=== PATIENT | male | born 1930 | race Caucasian/White ===

== ENCOUNTER 2017-04-01 15:58 | Inpatient (IN) | payer MEDICARE ==
--- NOTE | ~2017-04-01 | HP ---
History And Physical [place] [address] [facility] [place]. [address] NAME: GISELLE DOAN : [birth year] STATUS : ADM IN PAT#: [id number] AGE: 87 ADM/REG DATE : 04/01/17 MR#: [id number] REPORT SERV DATE: 04/02/17 DICTATED BY: JARRED SILVA DATE: 04/01/17 REPORT STATUS : Draft TRANSCRIBED BY: MODL DATE: 04/01/17 DATE OF ADMISSION: 04/01/2017 REASON FOR ADMISSION: Acute kidney injury per Dr. Moser. HISTORY OF PRESENT ILLNESS: This is an 87-year-old male, who suffers from obesity, likely dementia. He knows what year it is at baseline, but he is slow to speech, known history as well, recently diagnosed with sick sinus syndrome at [facility] requiring a pacemaker in December 2016. The patient also has a history of AFib, rate controlled on carvedilol, suspected history of heart failure. As a result, we do not have an EF in front of me. The patient has known history of CKD 3, baseline of 1.6 to 1.7. Recent history of acute anemia, prompted having endoscopy in early January 2017 at [place] which showed EGD, antral polyps. Colonoscopy showed one sessile polyp in the ascending colon, which was removed. No signs of active bleeding found anywhere in the upper or lower scopes at that time. Known hemoglobin 7.9. H and H were stable. He was recommended if it were to recur, have an outpatient PillCam study, went to a facility in January 2017, then followed up with Dr. Moser who noted additional past history of having RICHARD on CKD, held his Lasix. The patient came in two weeks later with increased swelling, left greater than right lower extremity, mild shortness of breath, but here at 100% on room air. The patient as a result was recommended for direct admission per Dr. Moser. Exam done in here, vitals are 118/56, 100% on room air; 15 respirations; 71 heart rate, 98.1 temperature. The patient is not the best historian. His daughter is there who made him a complete DNR/DNI. I did not endorse any new fevers, chills, nausea, vomiting, has chronic diarrhea, no chest pain, no chest pressure. Positive shortness of breath. Cannot elicit PND or orthopnea. No abdominal pain. No melena. No hematochezia. PAST MEDICAL AND PAST SURGICAL HISTORY: See above, including apparent hypertension, additional history of colon cancer status post surgical resection. He did apparently have two lymph nodes infiltrated with cancer. Apparently, the patient did not get any chemo or radiation thereafter. History of COPD, about [id number] history of smoking, quit in his 40s. MR, right bundle-branch block, diastolic heart failure, presumed EF being normal. Additional past medical history of hypothyroidism, on Synthroid; osteoarthritis; tramadol for pain. FAMILY HISTORY: Hypertension at least one parent. SOCIAL HISTORY: Does not drink, do drugs, or smoke cigarettes, used to though in his 20s to his 40s, possibly [id number]. ALLERGIES: NO KNOWN DRUG ALLERGIES. REVIEW OF SYSTEMS: Done, see HPI. Otherwise, negative. PHYSICAL EXAMINATION: VITAL SIGNS: Blood pressure 118/56, 100% on room air, 15 respirations, 71 heart rate, 98.1 History And Physical [address] [address] NAME: GISELLE DOAN : [birth year] STATUS : ADM IN [facility]#: [id number] AGE: 87 ADM/REG DATE : 04/01/17 MR#: [id number] REPORT SERV DATE: 04/02/17 DICTATED BY: JARRED SILVA DATE: 04/01/17 REPORT STATUS : Draft TRANSCRIBED BY: PABLO DATE: 04/01/17 temperature. GENERAL: In no acute distress. HEENT: PERRLA. No scleral icterus. CARDIOVASCULAR: No carotid bruit. No murmur auscultated. Otherwise, regular rate and rhythm. Muffled heart sounds. RESPIRATORY: Decreased breath sounds bibasilar. No obvious wheezes. No crackles. ABDOMEN: Nontender, nondistended. Positive bowel sounds. EXTREMITIES: He does have about 2+ pitting edema in left lower extremity compared to 1+ in the right lower extremity. NEURO: He is A and O x4/4. He is a bit slow to speech, it may be his baseline per the daughter. PSYCH: Unable to assess given neuro status. LABORATORY DATA: All pending, apparently Dr. Moser' office, it was 2.6 creatinine to 2.3 and he has a baseline 1.6 to 1.7 and I see here, he has blood drawn yesterday on the 03/31/2017. White count was 4.1, hemoglobin was 8.0, platelets of 162,000. The patient has a sugar of 111 from yesterday. Creatinine 2.3, may have been 2.2 two weeks ago. His hemoglobin may have been 8.7 two weeks ago. CO2 of 22, mild acidosis. ASSESSMENT: 1. Acute kidney injury on chronic kidney disease, unclear urine output status. 2. Left lower greater than right lower extremity swelling, yet is on Eliquis. Please also reference home medications per the pharmacy [facility]. 3. History of diastolic heart failure. 4. Hypothyroidism. 5. Dementia with recent discharge from [facility] [place] in January 2017 "generalized weakness, possible failure to thrive." The patient has had decreased p.o. intake per the daughter resulting in acute kidney injury if there is no other reversible reason. 6. Sick sinus syndrome history with pacer. PLAN: We will go ahead and admit this patient. Elucidate his RICHARD with CT of the abdomen and pelvis to rule out nephrolithiasis. Get a FENa. Place him initially on LR 120 for 2 L, then LR at 90. We will add sodium bicarbonate as well given his mild acidosis from yesterday. We will repeat CBC and a procalcitonin level suggestive of any sepsis, we will panculture the patient. Empirically place him on Levaquin given his shortness of breath. However, the patient is 100% on room air. As a result, I will not diurese this patient until we have more definitive evidence. BMP in light of his elevated creatinine. He does not appear to have any orthopnea or PND at this time. We will get a bilateral lower extremity ultrasound for potential clot, however, would be unusual and Eliquis may require if he does have one to have a different anticoagulant. Get a CT of his head given his slow to speech nature. He is also anemic today with recent known history of guaiac-positive in the past with relatively negative endoscopy and colonoscopy at [place]. As a result, I will repeat stool guaiac and Protonix 40 IV b.i.d. Type and screen 2 units, transfuse if less than 7 with Lasix in between. Slow transfusions at 4 hours, may just have symptomatic anemia. See rest of my orders. More details to follow pending his clinical course and laboratory results. History And Physical [address] [place]. [place]. [address] NAME: GISELLE DOAN : [birth year] STATUS : ADM IN PAT#: [id number] AGE: 87 ADM/REG DATE : 04/01/17 MR#: [id number] REPORT SERV DATE: 04/02/17 DICTATED BY: JARRED SILVA DATE: 04/01/17 REPORT STATUS : Draft TRANSCRIBED BY: PABLO DATE: 04/01/17 All questions were answered. It took well over 60 minutes to do. Reference [employer]Seek and Results Scorecard. WST/MODL Jarred Silva DO / [id number] CC: DO Annelise Hu D.O. F.A.C.P.
--- NOTE | ~2017-04-01 | CN ---
Consultation Report [facility] [address] [place]. [address] NAME: GISELLE MORE : [birth year] STATUS : ADM IN PAT#: [id number] AGE: 87 ADM/REG DATE : 04/01/17 MR#: [id number] REPORT SERV DATE: 04/02/17 DICTATED BY: MORGAN WARD DATE: 04/02/17 REPORT STATUS : Draft TRANSCRIBED BY: MODL DATE: 04/02/17 NEPHROLOGY CONSULTATION DATE OF CONSULTATION: HISTORY OF PRESENT ILLNESS: Mr. More is an 87-year-old, white male, patient of Dr. Orion Simmons so I am asked to consult for acute on chronic renal failure. Dr. Facundo Moser follows him as an outpatient, baseline creatinine 1.6 to 1.7 baseline, 1.8 on 01/28/2017 when admitted to [facility] for workup of anemia. By 03/19/2017, his creatinine gone up to 2.[address] Facundo Moser office and by 03/31/2017, it was 2.3 and at that point, he was edematous after having stopped the Lasix because thinking he maybe a bit prerenal earlier. By the 04/01/2017, it had gone up to 2.35 and was transferred to the hospital for further evaluation. PAST MEDICAL HISTORY: Significant for dementia; sick sinus syndrome with a pacemaker placed at [place] in December this year; long history of atrial fib rate controlled with apixaban on board; had colon resection in 2012 for colon cancer with positive lymph nodes but no chemo or radiation therapy thought indicated; chronic anemia persistent on 01/28/2017, had an EGD and colonoscopy revealing colon polyps and antral polyps; has longstanding history of COPD; hypertension; hypothyroidism; and osteoarthritis. SOCIAL HISTORY: No tobacco currently but does have extensive history in the past. No alcohol. No drugs. FAMILY HISTORY: Positive for hypertension. ALLERGIES: NO KNOWN DRUG ALLERGIES. REVIEW OF SYSTEMS: He is demented, no history. He has history of chronic acute kidney failure for which Lasix was stopped, and he developed some edema. His Lasix is still off, and his son-in-law tells me he had problems with catheter with urine retention at [place] in December and a catheter was placed there with much difficulty. They had to use a Coude catheter and they thought, they might have to call in somebody special to put the catheter in. It apparently was quite painful and the family would like to avoid it if possible although I explained to him if CT scan shows distended bladder, we would check a postvoid residual and put a catheter in if needed. PHYSICAL EXAMINATION: VITAL SIGNS: Blood pressure 113/54, heart rate of 61, respirations 16, temperature 98.8. GENERAL: Awake, alert, oriented x2, 2017 and name. HEENT: Examination unremarkable. NECK: Supple. Consultation Report [facility] [address] [place]. [address] NAME: GISELLE MORE : [birth year] STATUS : ADM IN PAT#: [id number] AGE: 87 ADM/REG DATE : 04/01/17 MR#: [id number] REPORT SERV DATE: 04/02/17 DICTATED BY: MORGAN WARD DATE: 04/02/17 REPORT STATUS : Draft TRANSCRIBED BY: PABLO DATE: 04/02/17 CHEST: Clear with upper airway sounds. CARDIOVASCULAR: Without rub. ABDOMEN: Abdomen has distended bladder palpable suprapubically. Bowel sounds are present. No other masses palpated. EXTREMITIES: 2+ edema in both lower extremities. NEUROLOGICAL: Nonfocal neurological exam. Did not ambulate the patient. LABORATORY DATA: Lab shows sodium 147, potassium 3.4, chloride 115, BUN of 53, creatinine 2.3 with blood sugar 85. Calcium 8.2, magnesium 1.6. Phosphorus 3.9, white count 3.1, hemoglobin 7.2, hematocrit 22, platelet count 146,000. ASSESSMENT: 1. Acute kidney injury on chronic kidney disease. Baseline creatinine 1.8 now 2.3. We need to rule out obstruction especially with palpable bladder. CT scan pending. 2. See past medical history. PLAN: CT of the abdomen has been done. We will see if he a Jordan catheter is indicated, and we will discuss with Dr. Simmons in a.m. I have talked to the daughter and son-in-law, and I have explained to them the need for the catheter if his postvoid residual is still elevated. FRANCISCA/PABLO Morgan Ward M.D. / [id number] CC: DO Annelise Hu D.O. F.A.C.P.
--- NOTE | ~2017-04-01 | PUL ---
[address] [address] NAME: GISELLE DOAN : [birth year] STATUS : ADM IN PAT#: [id number] AGE: 87 ADM/REG DATE : 04/01/17 MR#: [id number] REPORT SERV DATE: 04/06/17 DICTATED BY: MURIEL GONZALEZ DATE: 04/05/17 REPORT STATUS : Draft TRANSCRIBED BY: MODL DATE: 04/05/17 PULMONARY FUNCTION TEST Overnight oximetry performed on room air demonstrated no significant desaturation. Normal oximetry report. KB/MODL Muriel Gonzalez M.D. / [id number] CC: DO Annelise Hu D.O. F.A.C.P.
--- NOTE | ~2017-04-01 | CN ---
Consultation Report [facility] [address] [facility] [place]. [address] NAME: GISELLE MORE : [birth year] STATUS : ADM IN [facility]#: [id number] AGE: 87 ADM/REG DATE : 04/01/17 MR#: [id number] REPORT SERV DATE: 04/04/17 DICTATED BY: GUICHO SORIANO DATE: 04/04/17 REPORT STATUS : Draft TRANSCRIBED BY: MODL DATE: 04/04/17 CONSULTATION DATE OF CONSULTATION: 04/04/2017 REASON FOR CONSULTATION: Urinary retention with bilateral hydronephrosis and acute renal insufficiency. HISTORY OF PRESENT ILLNESS: Mr. More is an 87-year-old male with multiple comorbidities, who was found to be anemic, was admitted for anemia workup. During his workup, he was found to have an elevated creatinine up to 2.3. CT scan without contrast was done which demonstrated urinary retention and bilateral hydronephrosis. He is on anticoagulation for cardiac conditions. I have asked to consult, given urinary retention and acute kidney injury. PAST MEDICAL HISTORY: Dementia, sick sinus syndrome with pacemaker, atrial fibrillation on anticoagulation, history of colon resection, chronic anemia, COPD, hypertension, hypothyroidism, and osteoarthritis. PAST SURGICAL HISTORY: Colon removal, upper endoscopy, and EGD. SOCIAL HISTORY: He does not smoke, drink, or use illegal drugs. FAMILY HISTORY: Positive hypertension. ALLERGIES: NO KNOWN DRUG ALLERGIES. REVIEW OF SYSTEMS: Review of systems was performed. Pertinent positives are listed in the HPI. PHYSICAL EXAMINATION: VITAL SIGNS: Temperature is. 98.3, pulse is in the 60s, blood pressure is 111/56, and saturating 96% on room air. GENERAL: He is in no acute distress. He appears stated age. HEENT: Head is normocephalic and atraumatic. LUNGS: Breathing is nonlabored. He is not in respiratory distress. Pulse is regular in rate and rhythm. ABDOMEN: Soft, nontender, and nondistended. There is no cyanosis or edema. He has a buried penis. There is some scrotal edema. LABORATORY DATA: White count 3.5, hemoglobin 8.8. Creatinine is 2.08. ASSESSMENT AND PLAN: Mr. More has acute urinary retention with bilateral hydronephrosis and acute kidney injury. I discussed with him today placing a Jordan catheter. However, he Consultation Report [facility] [address] [facility] [place]. [address] NAME: GISELLE MORE : [birth year] STATUS : ADM IN PAT#: [id number] AGE: 87 ADM/REG DATE : 04/01/17 MR#: [id number] REPORT SERV DATE: 04/04/17 DICTATED BY: GUICHO SORIANO DATE: 04/04/17 REPORT STATUS : Draft TRANSCRIBED BY: MODL DATE: 04/04/17 has refused placing a Jordan catheter at this time. He is currently off anticoagulation. I think it is reasonable if the patient could be convinced to have a Jordan catheter for the nursing staff to try and place this catheter. There is no indication that there should be a difficult Jordan catheter placement. Of course, I am always happy to assist should catheter placement become difficult. He should follow up after discharge to my clinic to discuss catheter management and other strategies. He would likely be a good candidate for SP tube. We will arrange followup for him upon discharge. Please call with further questions. MICKEY/PABLO Guicho Soriano MD / [id number] CC: MD Annelise Ramires D.O. F.A.C.P.
--- NOTE | ~2017-04-01 | DS ---
Discharge Summary [facility] [address] [place]. [address] NAME: GISELLE DOAN : [birth year] STATUS : DIS IN PAT#: [id number] AGE: 87 ADM/REG DATE : 04/01/17 MR#: [id number] REPORT SERV DATE: 04/08/17 DICTATED BY: JARRED SILVA DATE: 04/07/17 REPORT STATUS : Draft TRANSCRIBED BY: MODL DATE: 04/07/17 ADMISSION DATE: 04/01/2017 DISCHARGE DATE: 04/07/2017 HOSPITAL COURSE: An 87-year-old male with known history of dementia; slow to speech at baseline; recent history of sick sinus syndrome at [place] requiring pacer in 12/2016; history of atrial fibrillation, rate controlled on carvedilol; CKD 3, baseline about 1.7; recent history of acute anemia with endoscopy in 01/2017 at [place] showed just antral polyps, colonoscopy just showed a sessile polyp in the ascending colon, had recommend outpatient PillCam study if worsened. The patient recently was admitted here per request of Dr. Moser for RICHARD and CKD. The patient was 100% on room air. We made him complete DNR/DNI. I did not endorse any orthopnea or PND, was mildly short of breath, possibly due to atelectasis from being nearly chair bound. The patient's hemoglobin has been stable while here now at 9.0 from 8.9 and from 8.8. Creatinine has been much better now, 1.83 from about 2.3 initially despite having a Jordan catheter. Asked Urology for assistance, the patient's family declined, this was not emergent, may need to be urgently placed in the future. However, given adequate urine output, decreasing creatinine, and postvoid residuals going down while also stopping IV fluids at this time, the patient is doing much better, not an immediate hospice concern as a result for obstructive uropathy. Had a CT of abdomen and pelvis regarding this obstructive uropathy, bilateral hydronephrosis, and hydroureter associated with dilated bladder. As a result, follow up with Dr. Soriano in two weeks with postvoid residual and BMP. Wants to hold off on any diuretics at this time. Did an ultrasound of the lower extremities, no VTE. Did CT of his brain given his dementia risk, no known objective baseline prior, just showed moderate diffuse cerebral involutional changes, no acute stroke. Did a swallow study which is a concern; delayed swallowing reflex and incomplete epiglottic inversion leading to deep penetration, aspiration particularly of thin liquids. As a result, is on pureed diet and honey-thickened liquids. Given the recent endoscopy at [place], would not seem to require one immediately at least. DISCHARGE MEDICATIONS: Would be Eliquis 2.5 p.o. b.i.d., would recommend holding that for least 24 hours prior to putting in a Jordan; carvedilol 3.125 p.o. b.i.d.; Celexa 10 p.o. daily; Nu-Iron; as well as a finasteride 5 p.o. daily which was added by Urology with doubling of the Flomax to 0.8 p.o. daily; folic acid 1 mg p.o. daily; Synthroid 88 mcg p.o. q.a.m., as well as Protonix 40 p.o. q.a.m., as well as sodium bicarbonate 1300 p.o. b.i.d. just for two more days, as well as albuterol p.r.n.; Spiriva 18 mcg capsule inhaled daily for clinical COPD given smoking history in the past; and tramadol 50 p.o. t.i.d. p.r.n. BMP in two weeks. The patient was sufficiently improved with increased urine output as has been witnessed here. Did a nocturnal oxygen study, no significant desaturations, normal oximetry report. CONSULTS: Nephrology and Urology. Discharge Summary [address] [address] NAME: GISELLE DOAN : [birth year] STATUS : DIS IN PAT#: [id number] AGE: 87 ADM/REG DATE : 04/01/17 MR#: [id number] REPORT SERV DATE: 04/08/17 DICTATED BY: JARRED SILVA DATE: 04/07/17 REPORT STATUS : Draft TRANSCRIBED BY: PABLO DATE: 04/07/17 PROCEDURES: None. Stool guaiac was negative thankfully. All questions were answered, it took well over 30 minutes to do. DISCHARGE DIAGNOSES: 1. Obstructive uropathy. 2. Acute kidney injury. 3. Chronic kidney disease. 4. Hypertension. 5. Dysphagia. 6. Dementia. 7. Clinical chronic obstructive pulmonary disease. 8. Debility. 9. Anemia. 10.Outpatient PillCam will be recommended. FATOU/PABLO Jarred Silva DO / [id number] CC: DO Annelise Hu D.O. F.A.C.P.
[2017-04-01] MEDS ORDERED: ALBUTEROL0.083 % INH (17:30)
[2017-04-01] MEDS ORDERED: CELEXA10 PO (17:30)
[2017-04-01] MEDS ORDERED: EZFE 200200 MG PO (17:31)
[2017-04-01] MEDS ORDERED: COREG3 PO (17:31)
[2017-04-01] MEDS ORDERED: FOLIC PO (17:31)
[2017-04-01] MEDS ORDERED: FLOMAX4 PO (17:31)
[2017-04-01] MEDS ORDERED: ELIQUIS 2.5 MG2.5 MG PO (17:31)
[2017-04-01] MEDS ORDERED: L20 PO (17:32)
[2017-04-01] MEDS ORDERED: LEVOTHYROXIN88 MCG PO (17:32)
[2017-04-01] MEDS ORDERED: PRILOSEC40 MG PO (17:32)
[2017-04-01] MEDS ORDERED: ULTRAM50 PO (17:33)
[2017-04-01 18:45] LABS: BASOPHILS 0.4 %; BASOPHILS ABSOLUTE 0.02 10/3/uL (0.0-0.16); EOSINOPHILS 3.7 %; EOSINOPHILS ABSOLUTE 0.18 10/3/uL (0.0-0.53); LYMPHOCYTES 34.5 %; LYMPHOCYTES ABSOLUTE 1.66 10/3/uL (0.67-4.30); MEAN CORPUS HGB CONC 33.1 g/dL (32.0-36.0); MEAN CORPUSCULAR HEMOGLOB 29.9 pg (26.0-34.0); MEAN PLATELET VOLUME 9.2 fL (9.2-13.0); MONOCYTES 6.9 %; MONOCYTES ABSOLUTE 0.33 10/3/uL (0.21-1.20); NEUTROPHILS 54.5 %; NEUTROPHILS ABSOLUTE 2.62 10/3/uL (2.02-8.40); PLATELET COUNT 170 10/3/uL (150-400); RBC DISTRIBUTION WIDTH 15.7 % (12.0-16.0); WHITE BLOOD CELLS 4.8 10/3/uL (4.5-10.5)
[2017-04-01 18:46] LABS: HEMATOCRIT 25.1 % (40.0-51.0); HEMOGLOBIN 8.3 g/dL (13.6-17.8); MANUAL DIFF NO %; MEAN CORPUSCULAR VOLUME 90.3 fL (80-100); RED CELL COUNT 2.78 10/6/uL (4.7-6.1)
[2017-04-01 19:26] LABS: ALBUMIN 3.2 G/DL (3.5-5.0); ALKALINE PHOSPHATASE 82 U/L (45-117); BUN (BLOOD UREA NITROGEN) 54 MG/DL (6-23); CALCIUM, SERUM 8.4 MG/DL (8.5-10.4); CHLORIDE, SERUM 113 MMOL/L (96-112); CO2 (CARBON DIOXIDE) 25 MMOL/L (24-34); CREATININE 2.35 MG/DL (0.70-1.30); FERRITIN 396 NG/ML (26-388); GFR AFRICAN AMERICAN 27 ML/MIN (>=60); GFR NON AFRICAN AMERICAN 24 ML/MIN (>=60); GLOBULIN 3.2 G/DL (2.5-4.1); GLUCOSE, SERUM 95 MG/DL (60-99); IRON BINDING CAPACITY 174 MCG/DL (250-450); IRON, SERUM 28 MCG/DL (35-150); PHOSPHORUS, SERUM 4.2 MG/DL (2.5-4.5); POTASSIUM, SERUM 3.5 MMOL/L (3.5-5.3); SGOT(AST) 9 U/L (5-40); SGPT(ALT) 7 U/L (5-65); SODIUM, SERUM 144 MMOL/L (135-148); TOTAL BILIRUBIN 0.6 MG/DL (0-1.2); TOTAL PROTEIN 6.4 G/DL (6.0-8.5); TROPONIN I <0.02 NG/ML (<0.05)
[2017-04-01 19:39] LABS: B NATRIURETIC PEPTIDE (BNP) 657.1 PG/ML (< 100.0)
[2017-04-01 19:53] LABS: PROCALCITONIN <0.05 ng/mL (<0.5)
[2017-04-01 21:27] LABS: GLYCOHEMOGLOBIN (HbA1c) 4.8 % (4.7-6.1)
[2017-04-02 05:28] LABS: BASOPHILS 0.3 %; BASOPHILS ABSOLUTE 0.01 10/3/uL (0.0-0.16); EOSINOPHILS 3.5 %; EOSINOPHILS ABSOLUTE 0.11 10/3/uL (0.0-0.53); HEMOGLOBIN 7.2 g/dL (13.6-17.8); IMMATURE GRANULOCYTES 0.3 %; IMMATURE GRANULOCYTES ABSOLUTE 0.01 10/3/uL (0.0-0.11); LYMPHOCYTES 41.7 %; LYMPHOCYTES ABSOLUTE 1.31 10/3/uL (0.67-4.30); MEAN CORPUS HGB CONC 32.1 g/dL (32.0-36.0); MEAN CORPUSCULAR VOLUME 90.3 fL (80-100); MEAN PLATELET VOLUME 9.2 fL (9.2-13.0); MONOCYTES 9.6 %; NEUTROPHILS 44.6 %; PLATELET COUNT 146 10/3/uL (150-400); RBC DISTRIBUTION WIDTH 15.5 % (12.0-16.0); RED CELL COUNT 2.48 10/6/uL (4.7-6.1); WHITE BLOOD CELLS 3.1 10/3/uL (4.5-10.5)
[2017-04-02 05:31] LABS: HEMATOCRIT 22.4 % (40.0-51.0); MANUAL DIFF NO %
[2017-04-02 05:44] LABS: BUN (BLOOD UREA NITROGEN) 53 MG/DL (6-23); CALCIUM, SERUM 8.2 MG/DL (8.5-10.4); CHLORIDE, SERUM 115 MMOL/L (96-112); CO2 (CARBON DIOXIDE) 24 MMOL/L (24-34); CREATININE 2.32 MG/DL (0.70-1.30); GFR AFRICAN AMERICAN 28 ML/MIN (>=60); GFR NON AFRICAN AMERICAN 24 ML/MIN (>=60); GLUCOSE, SERUM 85 MG/DL (60-99); PHOSPHORUS, SERUM 3.9 MG/DL (2.5-4.5); POTASSIUM, SERUM 3.4 MMOL/L (3.5-5.3); SODIUM, SERUM 147 MMOL/L (135-148)
[2017-04-03 05:51] LABS: BASOPHILS 0.5 %; BASOPHILS ABSOLUTE 0.02 10/3/uL (0.0-0.16); EOSINOPHILS 3.5 %; EOSINOPHILS ABSOLUTE 0.13 10/3/uL (0.0-0.53); IMMATURE GRANULOCYTES 0.3 %; IMMATURE GRANULOCYTES ABSOLUTE 0.01 10/3/uL (0.0-0.11); LYMPHOCYTES 36.4 %; LYMPHOCYTES ABSOLUTE 1.35 10/3/uL (0.67-4.30); MEAN CORPUS HGB CONC 33.2 g/dL (32.0-36.0); MEAN CORPUSCULAR HEMOGLOB 29.5 pg (26.0-34.0); MEAN CORPUSCULAR VOLUME 88.7 fL (80-100); MEAN PLATELET VOLUME 9.4 fL (9.2-13.0); MONOCYTES 7.5 %; MONOCYTES ABSOLUTE 0.28 10/3/uL (0.21-1.20); NEUTROPHILS 51.8 %; NEUTROPHILS ABSOLUTE 1.92 10/3/uL (2.02-8.40); PLATELET COUNT 151 10/3/uL (150-400); RBC DISTRIBUTION WIDTH 15.6 % (12.0-16.0); WHITE BLOOD CELLS 3.7 10/3/uL (4.5-10.5)
[2017-04-03 05:53] LABS: HEMATOCRIT 26.8 % (40.0-51.0); HEMOGLOBIN 8.9 g/dL (13.6-17.8); MANUAL DIFF NO %; RED CELL COUNT 3.02 10/6/uL (4.7-6.1)
[2017-04-03 05:59] LABS: ALBUMIN 2.9 G/DL (3.5-5.0); BUN (BLOOD UREA NITROGEN) 48 MG/DL (6-23); CALCIUM, SERUM 8.3 MG/DL (8.5-10.4); CHLORIDE, SERUM 116 MMOL/L (96-112); CO2 (CARBON DIOXIDE) 20 MMOL/L (24-34); CREATININE 2.16 MG/DL (0.70-1.30); GFR AFRICAN AMERICAN 30 ML/MIN (>=60); GFR NON AFRICAN AMERICAN 26 ML/MIN (>=60); GLUCOSE, SERUM 86 MG/DL (60-99); PHOSPHORUS, SERUM 3.3 MG/DL (2.5-4.5); POTASSIUM, SERUM 3.8 MMOL/L (3.5-5.3); SODIUM, SERUM 148 MMOL/L (135-148)
[2017-04-04 06:23] LABS: BASOPHILS 0.3 %; BASOPHILS ABSOLUTE 0.01 10/3/uL (0.0-0.16); EOSINOPHILS 3.7 %; EOSINOPHILS ABSOLUTE 0.13 10/3/uL (0.0-0.53); HEMATOCRIT 26.6 % (40.0-51.0); HEMOGLOBIN 8.8 g/dL (13.6-17.8); LYMPHOCYTES 37.7 %; LYMPHOCYTES ABSOLUTE 1.32 10/3/uL (0.67-4.30); MEAN CORPUS HGB CONC 33.1 g/dL (32.0-36.0); MEAN CORPUSCULAR HEMOGLOB 29.3 pg (26.0-34.0); MEAN CORPUSCULAR VOLUME 88.7 fL (80-100); MEAN PLATELET VOLUME 9.2 fL (9.2-13.0); MONOCYTES 7.1 %; MONOCYTES ABSOLUTE 0.25 10/3/uL (0.21-1.20); NEUTROPHILS 51.2 %; NEUTROPHILS ABSOLUTE 1.79 10/3/uL (2.02-8.40); PLATELET COUNT 152 10/3/uL (150-400); RBC DISTRIBUTION WIDTH 15.7 % (12.0-16.0); WHITE BLOOD CELLS 3.5 10/3/uL (4.5-10.5)
[2017-04-04 06:24] LABS: MANUAL DIFF NO %
[2017-04-04 06:30] LABS: ALBUMIN 2.8 G/DL (3.5-5.0); CALCIUM, SERUM 8.3 MG/DL (8.5-10.4); CHLORIDE, SERUM 117 MMOL/L (96-112); CO2 (CARBON DIOXIDE) 23 MMOL/L (24-34); CREATININE 2.08 MG/DL (0.70-1.30); GFR AFRICAN AMERICAN 32 ML/MIN (>=60); GFR NON AFRICAN AMERICAN 27 ML/MIN (>=60); GLUCOSE, SERUM 95 MG/DL (60-99); PHOSPHORUS, SERUM 2.8 MG/DL (2.5-4.5); POTASSIUM, SERUM 3.8 MMOL/L (3.5-5.3); SODIUM, SERUM 149 MMOL/L (135-148)
[2017-04-04 06:32] LABS: BUN (BLOOD UREA NITROGEN) 44 MG/DL (6-23)
[2017-04-04 07:31] LABS: PROCALCITONIN <0.05 ng/mL (<0.5)
[2017-04-05 04:59] LABS: BASOPHILS 0.3 %; BASOPHILS ABSOLUTE 0.01 10/3/uL (0.0-0.16); EOSINOPHILS 4.2 %; EOSINOPHILS ABSOLUTE 0.16 10/3/uL (0.0-0.53); HEMATOCRIT 26.1 % (40.0-51.0); HEMOGLOBIN 8.7 g/dL (13.6-17.8); LYMPHOCYTES 38.5 %; LYMPHOCYTES ABSOLUTE 1.46 10/3/uL (0.67-4.30); MEAN CORPUS HGB CONC 33.3 g/dL (32.0-36.0); MEAN CORPUSCULAR HEMOGLOB 29.9 pg (26.0-34.0); MEAN CORPUSCULAR VOLUME 89.7 fL (80-100); MEAN PLATELET VOLUME 9.4 fL (9.2-13.0); MONOCYTES 6.1 %; MONOCYTES ABSOLUTE 0.23 10/3/uL (0.21-1.20); NEUTROPHILS 50.9 %; NEUTROPHILS ABSOLUTE 1.93 10/3/uL (2.02-8.40); PLATELET COUNT 154 10/3/uL (150-400); RBC DISTRIBUTION WIDTH 15.4 % (12.0-16.0); RED CELL COUNT 2.91 10/6/uL (4.7-6.1); WHITE BLOOD CELLS 3.8 10/3/uL (4.5-10.5)
[2017-04-05 05:00] LABS: MANUAL DIFF NO %
[2017-04-05 05:10] LABS: BUN (BLOOD UREA NITROGEN) 41 MG/DL (6-23); CALCIUM, SERUM 8.1 MG/DL (8.5-10.4); CHLORIDE, SERUM 116 MMOL/L (96-112); CO2 (CARBON DIOXIDE) 26 MMOL/L (24-34); CREATININE 2.03 MG/DL (0.70-1.30); GFR AFRICAN AMERICAN 33 ML/MIN (>=60); GFR NON AFRICAN AMERICAN 28 ML/MIN (>=60); GLUCOSE, SERUM 90 MG/DL (60-99); PHOSPHORUS, SERUM 2.6 MG/DL (2.5-4.5); POTASSIUM, SERUM 4.1 MMOL/L (3.5-5.3); SODIUM, SERUM 148 MMOL/L (135-148)
[2017-04-06 04:39] LABS: BASOPHILS 0.3 %; BASOPHILS ABSOLUTE 0.01 10/3/uL (0.0-0.16); EOSINOPHILS ABSOLUTE 0.16 10/3/uL (0.0-0.53); HEMATOCRIT 26.9 % (40.0-51.0); HEMOGLOBIN 8.9 g/dL (13.6-17.8); LYMPHOCYTES 33.1 %; LYMPHOCYTES ABSOLUTE 1.31 10/3/uL (0.67-4.30); MEAN CORPUS HGB CONC 33.1 g/dL (32.0-36.0); MEAN CORPUSCULAR HEMOGLOB 29.6 pg (26.0-34.0); MEAN CORPUSCULAR VOLUME 89.4 fL (80-100); MEAN PLATELET VOLUME 9.5 fL (9.2-13.0); MONOCYTES 7.1 %; MONOCYTES ABSOLUTE 0.28 10/3/uL (0.21-1.20); NEUTROPHILS 55.5 %; PLATELET COUNT 156 10/3/uL (150-400); RBC DISTRIBUTION WIDTH 15.3 % (12.0-16.0); RED CELL COUNT 3.01 10/6/uL (4.7-6.1)
[2017-04-06 04:43] LABS: MANUAL DIFF NO %
[2017-04-06 04:51] LABS: BUN (BLOOD UREA NITROGEN) 38 MG/DL (6-23); CALCIUM, SERUM 8.1 MG/DL (8.5-10.4); CHLORIDE, SERUM 113 MMOL/L (96-112); CO2 (CARBON DIOXIDE) 27 MMOL/L (24-34); CREATININE 1.98 MG/DL (0.70-1.30); GFR AFRICAN AMERICAN 34 ML/MIN (>=60); GFR NON AFRICAN AMERICAN 29 ML/MIN (>=60); GLUCOSE, SERUM 96 MG/DL (60-99); PHOSPHORUS, SERUM 2.5 MG/DL (2.5-4.5); POTASSIUM, SERUM 4.2 MMOL/L (3.5-5.3); SODIUM, SERUM 144 MMOL/L (135-148)
[2017-04-07 06:19] LABS: BASOPHILS 0.3 %; BASOPHILS ABSOLUTE 0.01 10/3/uL (0.0-0.16); EOSINOPHILS 4.5 %; EOSINOPHILS ABSOLUTE 0.17 10/3/uL (0.0-0.53); HEMATOCRIT 27.6 % (40.0-51.0); IMMATURE GRANULOCYTES 0.3 %; IMMATURE GRANULOCYTES ABSOLUTE 0.01 10/3/uL (0.0-0.11); LYMPHOCYTES 34.8 %; LYMPHOCYTES ABSOLUTE 1.31 10/3/uL (0.67-4.30); MEAN CORPUS HGB CONC 32.6 g/dL (32.0-36.0); MEAN CORPUSCULAR HEMOGLOB 29.4 pg (26.0-34.0); MEAN CORPUSCULAR VOLUME 90.2 fL (80-100); MEAN PLATELET VOLUME 9.3 fL (9.2-13.0); MONOCYTES 6.9 %; MONOCYTES ABSOLUTE 0.26 10/3/uL (0.21-1.20); NEUTROPHILS 53.2 %; PLATELET COUNT 156 10/3/uL (150-400); RED CELL COUNT 3.06 10/6/uL (4.7-6.1); WHITE BLOOD CELLS 3.8 10/3/uL (4.5-10.5)
[2017-04-07 06:20] LABS: MANUAL DIFF NO %
[2017-04-07 06:34] LABS: CALCIUM, SERUM 8.1 MG/DL (8.5-10.4); CHLORIDE, SERUM 112 MMOL/L (96-112); CO2 (CARBON DIOXIDE) 26 MMOL/L (24-34); CREATININE 1.83 MG/DL (0.70-1.30); GFR AFRICAN AMERICAN 37 ML/MIN (>=60); GFR NON AFRICAN AMERICAN 32 ML/MIN (>=60); GLUCOSE, SERUM 97 MG/DL (60-99); PHOSPHORUS, SERUM 2.6 MG/DL (2.5-4.5); POTASSIUM, SERUM 4.2 MMOL/L (3.5-5.3); SODIUM, SERUM 142 MMOL/L (135-148)
[2017-04-07 06:36] LABS: BUN (BLOOD UREA NITROGEN) 34 MG/DL (6-23)
[2017-05-02] MEDS ORDERED: PROSCAR5 PO (12:46)
[2017-05-02] MEDS ORDERED: FERROUS SULF325 M1 PO (12:46)
[2017-05-02] MEDS ORDERED: SPIRIVA INH (12:48)
== END 2017-04-07 18:30 | DRG 683 ==
LOC: 1SO 15:58
PROVIDERS: Internal Medicine
DX: N17.9 Acute kidney failure, unspecified (principal); I13.0 Hypertensive heart and chronic kidney disease with heart failure and stage 1 through stage 4 chronic kidney disease, or unspecified chronic kidney disease; E87.2 Acidosis; I50.32 Chronic diastolic (congestive) heart failure; F03.90 Unspecified dementia, unspecified severity, without behavioral disturbance, psychotic disturbance, mood disturbance, and anxiety; I49.5 Sick sinus syndrome; R13.12 Dysphagia, oropharyngeal phase; N13.30 Unspecified hydronephrosis; D63.1 Anemia in chronic kidney disease; Z66 Do not resuscitate; N18.3 Chronic kidney disease, stage 3 (moderate); E66.9 Obesity, unspecified; I45.10 Unspecified right bundle-branch block; R33.9 Retention of urine, unspecified; I48.91 Unspecified atrial fibrillation; Z68.26 Body mass index [BMI] 26.0-26.9, adult; J44.9 Chronic obstructive pulmonary disease, unspecified; E03.9 Hypothyroidism, unspecified; Z79.01 Long term (current) use of anticoagulants; Z79.899 Other long term (current) drug therapy; Z87.891 Personal history of nicotine dependence; Z95.0 Presence of cardiac pacemaker; Z85.038 Personal history of other malignant neoplasm of large intestine; Z90.49 Acquired absence of other specified parts of digestive tract
CPT/HCPCS: 36415; 70450; 71010; 74176; 74230; 80048; 80053; 80069; 82140; 82272; 82728; 82962; 83036; 83540; 83550; 83605; 83735; 83880; 84100; 84145; 84443; 84484; 85025; 86850; 86870; 86900; 86901; 86902; 86905; 86920; 86922; 92611-GN; 93005; 93970; 94640; 94762; 97110-GP; 97162-GP; 97530-GP; A9270-GY; C9113; G8978-CL-GP; G8979-CL-GP; G8980-CK-GP; G8996-CL-GN; G8997-CL-GN; G8998-CL-GN; P9016